=== PATIENT | male | born 1975 | race Caucasian/White ===

== ENCOUNTER → 2018-12-25 | Outpatient (CLI) | payer BC | LOC: COL.RAD 10:39 | DX: M48.061 Spinal stenosis, lumbar region without neurogenic claudication (principal) ==

== ENCOUNTER → 2019-01-06 | Outpatient (CLI) | payer BC | LOC: COL.VAS 08:00 | DX: M79.89 Other specified soft tissue disorders (principal) ==

== ENCOUNTER 2021-03-06 11:13 | Day surgery (SDC) | payer SELFPAY ==
[~2021-03-06] VITALS: Ht 190.5 cm; Wt 85.2 kg
[2021-03-06] MEDS ORDERED: NORCO 325 MG-101 TAB PO ×2 (11:57→14:51)
[2021-03-06] MEDS ORDERED: NEURONTIN300 MG/CAP PO (11:58)
[2021-03-06] MEDS ORDERED: ZANAFLEX CAPSULE4 MG PO (11:58)
[2021-03-06] MEDS ORDERED: TOPROL XL 50MG50 MG PO (11:58)
[2021-03-06] MEDS ORDERED: COLACE 100100 MG/CAP PO (11:59)
[2021-03-06] MEDS ORDERED: ONE-A-DAY ESSE1 EACH PO (11:59)
--- NOTE | 2021-03-06 12:00 | NUR ---
Patient complaining of severe pain. Aniceto Diaz CRNA notified. Orders received.
[2021-03-06 12:34] VITALS: BP 136/87; PULSE 56; TEMP 97.8
[2021-03-06 14:45] VITALS: BP 126/40; PULSE 56; TEMP 97.7
--- NOTE | 2021-03-06 14:45 | NUR ---
Patient back into [facility] from [facility]. Report received from ALE Moreland and JOSSELIN Browning. Patient awake and alert. Denies pain or nausea.
[2021-03-06 15:00] VITALS: BP 146/81; PULSE 50
--- NOTE | 2021-03-06 15:00 | NUR ---
Patient having some pain upon arrival. Rating pain 8-9/10 to right groin area. [place] given per JUN.
--- NOTE | 2021-03-06 15:05 | NUR ---
Patient requesting water and blueberry muffin and tolerated both well with no complaint of nausea or vomiting.
[2021-03-06 15:15] VITALS: BP 155/84; PULSE 51
--- NOTE | 2021-03-06 15:15 | NUR ---
Patient reports doing well.
[2021-03-06 15:30] VITALS: BP 147/87; PULSE 55
--- NOTE | 2021-03-06 15:30 | NUR ---
Went through discharge with patient and patient's . Questions answered. Verbalized understanding to education. Patient got dressed, went to restroom. Got dressed with the assistance of his .
--- NOTE | 2021-03-06 15:45 | NUR ---
Patient escorted to patient entrance via wheelchair. along side. Patient got to personal vehicle independently and was left in the care of his ,
== END 2021-03-06 15:45 | disposition home or self-care (01) ==
LOC: SDCO 11:13
DX: K40.90 Unilateral inguinal hernia, without obstruction or gangrene, not specified as recurrent (principal); I11.0 Hypertensive heart disease with heart failure; I50.9 Heart failure, unspecified; F17.210 Nicotine dependence, cigarettes, uncomplicated
CPT/HCPCS: C1781; J0690; J2250; J2270; J2704; J3010; J7120